=== PATIENT | female | born 1980 | race Caucasian/White ===

== ENCOUNTER 2020-05-19 17:35 | Emergency (ER) | payer OTHER ==
[2020-05-19] MEDS ORDERED: Sodium Chloride 0.9% 1000 ML 1,000 ML IV STA (17:59)
[2020-05-19 18:25] LABS: BASOPHIL % 0.3 % (0.0-0.4); Basophil (Absolute #) 0.03 (0-0.4); Eosinophil (Absolute #) 0.09 (0-0.5); Hematocrit 39.4 % (35-47); Lymphocyte (Absolute #) 2.52 (1.0-4.6); Lymphocytes % 28.3 % (24.0-44.0); Mean Cell Volume 91.8 fl (78-100); Mean Corpuscular Hemoglobin 30.3 pg (26-32); Mean Platelet Volume 9.6 fl (7.5-11.0); Monocyte (Absolute #) 0.46 (0.0-1.3); Monocytes % 5.2 % (0.0-12.0); Neutrophil % 65.2 % (36.0-66.0); Platelet Count 202 K/mm3 (150-450); Red Blood Count 4.29 M/mm3 (4.1-5.4); Red Cell Distribution Width 11.9 % (11.5-14.0); White Blood Count 8.9 K/mm3 (4.0-10.5)
[2020-05-19] MEDS ORDERED: Sodium Chloride 0.9% 1000 ML 1,000 ML ONE (18:25)
[2020-05-19 18:34] LABS: INR 1.05 (0.8-3.0); PROTIME 11.9 SECONDS (9.95-12.35)
[2020-05-19 18:36] LABS: ALBUMIN 3.9 g/dL (3.5-5.0); ALKALINE PHOSPHATASE 62 U/L (38-126); AMYLASE 86 U/L (30-110); ANION GAP 8.9 MEQ/L (5-15); BLOOD UREA NITROGEN 14 mg/dL (7-17); CHLORIDE 105 mmol/L (98-107); Carbon Dioxide 26 mmol/L (22-30); Creatinine 1 0.61 mg/dL (0.52-1.04); Glucose 98 mg/dL (74-106); LIPASE 261 U/L (23-300); MAGNESIUM 1.8 mg/dL (1.6-2.3); Potassium 3.5 mmol/L (3.5-5.1); SGOT/AST 23 U/L (14-36); SGPT/ALT 19 U/L (0-35); SODIUM 137 mmol/L (137-145); Total Protein 6.7 g/dL (6.3-8.2)
--- NOTE | 2020-05-19 19:57 | ERPHSYRPT ---
- History of Present Illness Patient Subjective Stated Complaint: "I was working outside when I twisted my ankle. I felt like I was going to pass out so my daughter helped me to the ground. I did pass out for a little bit." Triage Nursing Assessment: Pt presented alert et oriented x3 answering questions appropriately. Pt reported twisting her ankle at home prior to having a single syncopal episode. Pt denied headache, chest pain, shortness of breath at this time. Pupils 3mm reactive. Oral mucosa pink/dry. Neck supple non-tender. Symmetrical chest expansion. Lungs clear with adequate airflow. Heart tones regular/clear. Radial pulses equal/bilateral. Abdomen soft non-tender. No noted dependent edema. Pedal pulses equal bilateral. GCS - 15, NIHSS - 0, No noted focal neurological deficits. Physician History: Is a 39-year-old female who twisted her ankle had some nausea and a brief sync opal episode and was dizzy with standing afterwards. He has no history of previous syncope she has had multiple sprains and strains of the right ankle. Witnessed: by family Prior Episodes: single episode today, no prior history Timing/Duration: today Precipitating Factors: injury (Sprain right ankle) Context: standing Loss of Consciousness: brief (seconds) Charcter of event(s): felt faint Allergies/Adverse Reactions: No Known Drug Allergies Allergy (Unverified 05/19/20 17:45) Hx Tetanus, Diphtheria Vaccination/Date Given: No Hx Influenza Vaccination/Date Given: No Travel Risk - International Travel Have you traveled outside of the country in past 3 weeks: No - Coronavirus Screening Close contact with a COVID-19 positive Pt in past 14-21 Days: No - Past Medical History Pertinent Past Medical History: No - Past Surgical History Past Surgical History: No - Social History Smoking Status: Never smoker Exposure to second hand smoke: No Drug Use: none - Female History Hx Now: No - Review of Systems Constitutional: Weakness, No Fever, No Chills Eyes: No Symptoms Ears, Nose, & Throat: No Symptoms Respiratory: No Cough, No Dyspnea Cardiac: No Chest Pain, No Edema, No Syncope Abdominal/Gastrointestinal: Nausea, No Abdominal Pain, No Vomiting, No Diarrhea Genitourinary Symptoms: No Dysuria Musculoskeletal: Joint Pain, Joint Swelling (Swelling right ankle), No Back Pain, No Neck Pain Skin: No Rash Neurological: No Dizziness, No Focal Weakness, No Sensory Changes Psychological: No Symptoms Endocrine: No Symptoms All Other Systems: Reviewed and Negative Physical Exam - Nursing Vital Signs Nursing Vital Signs: Initial Vital Signs Temperature 97.9 F 05/19/20 17:35 Pulse Rate 66 05/19/20 17:35 Respiratory Rate 18 05/19/20 17:35 Blood Pressure 133/63 05/19/20 17:35 O2 Sat by Pulse Oximetry 98 05/19/20 17:35 - Cl[place]son Coma Scale Best Eye Response (Sebas): (4) open spontaneously Best Verbal Response (Cl[place]son): (5) oriented Best Motor Response (Sebas): (6) obeys commands Sebas Total: 15 - Physical Exam General Appearance: no apparent distress, alert Eye Exam: bilateral eye: PERRL, EOMI Ears, Nose, Throat Exam: normal ENT inspection, pharynx normal, moist mucous membranes Neck Exam: normal inspection Respiratory: normal breath sounds, lungs clear, No chest tenderness, No respiratory distress Cardiovascular: regular rate/rhythm, capillary refill <2 sec, No murmur, No pulse deficit Gastrointestinal: soft, No tenderness, No distention, No mass Back Exam: normal inspection, normal range of motion, No CVA tenderness, No vertebral tenderness Extremity Exam: other (Right ankle is swollen and tender over the lateral malleolus) Peripheral Pulses: carotid (R): 2+, carotid (L): 2+ Mental Status: alert, oriented x 3, cooperative strategic planning analyst Exam: normal hearing, normal speech, PERRL Coordination/Gait: normal gait, normal cerebellar function Motor/Sensory: no motor deficit, no sensory deficit Skin Exam: normal color, warm, dry, No rash SpO2 Interpretation: normal SpO2: 100 O2 Delivery: Room Air Procedures - Splinting Location of Splint: Right, Ankle Type of Splint: Air Cast Splint Applied By: ED Nurse Pre-Proc Neuro Vasc Exam: normal Post-Proc Neuro Vasc Exam: neurovascular intact, unchanged from pre-exam - Course Nursing assessment & vital signs reviewed: Yes - Radiology Exams Right Ankle X-ray Interpretation: Negative (No acute fracture) Chest X-ray Interpretation: Other (Negative for acute process) Ordered Tests: Active Orders 24 hr Category Date Time Status Accucheck STAT Care 05/19/20 17:59 Active EKG-ER Only STAT Care 05/19/20 17:59 Active Orthostatic Vital Signs STAT Care 05/19/20 18:02 Active Pulse Oximetry (ED) STAT Care 05/19/20 17:59 Active ANKLE (3 VIEWS) Stat Exams 05/19/20 19:22 Taken CHEST 1 VIEW (PORTABLE) Stat Exams 05/19/20 17:59 Taken AMYLASE Stat Lab 05/19/20 18:21 Completed CBC W DIFF Stat Lab 05/19/20 18:21 Completed CMP Stat Lab 05/19/20 18:21 Completed LIPASE Stat Lab 05/19/20 18:21 Completed Lactic Acid Stat Lab 05/19/20 18:30 Completed MAGNESIUM Stat Lab 05/19/20 18:21 Completed PROTIME WITH INR Stat Lab 05/19/20 18:21 Completed TROPONIN Q3H Lab 05/19/20 18:21 Completed TROPONIN Q3H Lab 05/19/20 21:15 Ordered TROPONIN Q3H Lab 05/20/20 00:15 Ordered TROPONIN Q3H Lab 05/20/20 03:15 Ordered TROPONIN Q3H Lab 05/20/20 06:15 Ordered UA W/RFX UR CULTURE Stat Lab 05/19/20 17:59 Uncollected Medication Summary Discontinued Medications Generic Name Dose Route Start Last Admin Trade Name Freq PRN Reason Stop Dose Admin Sodium Chloride 1,000 mls @ 999 mls/hr 05/19/20 17:59 05/19/20 18:28 Sodium Chloride 0.9% 1000 Ml IV 05/19/20 18:59 999 mls/hr .Q1H1M STA Administration Sodium Chloride Confirm 05/19/20 18:25 Sodium Chloride 0.9% 1000 Ml Administered 05/19/20 18:26 Dose 1,000 mls @ ud .ROUTE .K-MED ONE Lab/Rad Data: Laboratory Result Diagrams 05/19/20 18:21 05/19/20 18:21 Laboratory Results 05/19/20 05/19/20 05/19/20 Range/Units 18:30 18:21 18:21 WBC (4.0-10.5) K/mm3 RBC (4.1-5.4) M/mm3 Hgb (12.0-16.0) gm/dl Hct (35-47) % MCV (78-100) fl MCH (26-32) pg MCHC (32-36) g/dl RDW (11.5-14.0) % Plt Count (150-450) K/mm3 MPV (7.5-11.0) fl Gran % (36.0-66.0) % Eos # (Auto) (0-0.5) Absolute Lymphs (auto) (1.0-4.6) Absolute Monos (auto) (0.0-1.3) Lymphocytes % (24.0-44.0) % Monocytes % (0.0-12.0) % Eosinophils % (0.00-5.0) % Basophils % (0.0-0.4) % Absolute Granulocytes (1.4-6.9) Basophils # (0-0.4) PT 11.9 (9.95-12.35) SECONDS INR 1.05 (0.8-3.0) Sodium (137-145) mmol/L Potassium (3.5-5.1) mmol/L Chloride (98-107) mmol/L Carbon Dioxide (22-30) mmol/L Anion Gap (5-15) MEQ/L BUN (7-17) mg/dL Creatinine (0.52-1.04) mg/dL Estimated GFR ML/MIN Glucose (74-106) mg/dL Lactic Acid 0.7 (0.4-2.0) Calcium (8.4-10.2) mg/dL Magnesium (1.6-2.3) mg/dL Total Bilirubin (0.2-1.3) mg/dL AST (14-36) U/L ALT (0-35) U/L Alkaline Phosphatase (38-126) U/L Troponin I < 0.012 (0.000-0.034) ng/mL Serum Total Protein (6.3-8.2) g/dL Albumin (3.5-5.0) g/dL Amylase (30-110) U/L Lipase (23-300) U/L 05/19/20 05/19/20 Range/Units 18:21 18:21 WBC 8.9 (4.0-10.5) K/mm3 RBC 4.29 (4.1-5.4) M/mm3 Hgb 13.0 (12.0-16.0) gm/dl Hct 39.4 (35-47) % MCV 91.8 (78-100) fl MCH 30.3 (26-32) pg MCHC 33.0 (32-36) g/dl RDW 11.9 (11.5-14.0) % Plt Count 202 (150-450) K/mm3 MPV 9.6 (7.5-11.0) fl Gran % 65.2 (36.0-66.0) % Eos # (Auto) 0.09 (0-0.5) Absolute Lymphs (auto) 2.52 (1.0-4.6) Absolute Monos (auto) 0.46 (0.0-1.3) Lymphocytes % 28.3 (24.0-44.0) % Monocytes % 5.2 (0.0-12.0) % Eosinophils % 1.0 (0.00-5.0) % Basophils % 0.3 (0.0-0.4) % Absolute Granulocytes 5.80 (1.4-6.9) Basophils # 0.03 (0-0.4) PT (9.95-12.35) SECONDS INR (0.8-3.0) Sodium 137 (137-145) mmol/L Potassium 3.5 (3.5-5.1) mmol/L Chloride 105 (98-107) mmol/L Carbon Dioxide 26 (22-30) mmol/L Anion Gap 8.9 (5-15) MEQ/L BUN 14 (7-17) mg/dL Creatinine 0.61 (0.52-1.04) mg/dL Estimated GFR > 60.0 ML/MIN Glucose 98 (74-106) mg/dL Lactic Acid (0.4-2.0) Calcium 9.0 (8.4-10.2) mg/dL Magnesium 1.8 (1.6-2.3) mg/dL Total Bilirubin 0.70 (0.2-1.3) mg/dL AST 23 (14-36) U/L ALT 19 (0-35) U/L Alkaline Phosphatase 62 (38-126) U/L Troponin I (0.000-0.034) ng/mL Serum Total Protein 6.7 (6.3-8.2) g/dL Albumin 3.9 (3.5-5.0) g/dL Amylase 86 (30-110) U/L Lipase 261 (23-300) U/L - Progress Progress: improved - Departure Departure Disposition: Home Clinical Impression: Syncope, Ankle sprain Condition: Stable Critical Care Time: No Referrals: DOCTOR,NO FAMILY [Primary Care Provider] - Prescriptions: Hydrocodone/APAP 5-325 Tab^^^ [[place] 5-325 Tablet^^^] 1 tab PO Q6HPRN PRN #10 tablet MDD 6 PRN Reason: Pain
[2020-05-19 20:28] VITALS: BP 127/70; PULSE 72; O2SAT 99
--- NOTE | 2020-05-19 21:30 | XRAY ---
Indication: Syncope. Comparison: None Portable apical lordotic chest clear. Heart and mediastinal structures within normal limits. Bony thorax intact. Impression: Nonacute chest.
--- NOTE | 2020-05-19 21:35 | XRAY ---
Indication: Pain following twisting injury. Comparison: July 22, 2016. 3 view right ankle again demonstrates mild lateral soft tissue swelling, lateral malleolus tip heterotopic ossification, and tiny posterior talus accessory ossicle. New tiny plantar heel spur. No other bony, articular, or soft tissue abnormalities.
== END 2020-05-19 20:18 | disposition home or self-care (01) ==
LOC: ED 17:35
DX: R55 Syncope and collapse (principal); S93.401A Sprain of unspecified ligament of right ankle, initial encounter; X50.1XXA Overexertion from prolonged static or awkward postures, initial encounter; Y93.01 Activity, walking, marching and hiking; Y92.9 Unspecified place or not applicable
CPT/HCPCS: 36415; 71045; 73610; 80053; 82150; 82962; 83605; 83690; 83735; 84484; 85025; 85610; 93005; 94760; 96360; 96361; 99284

== ENCOUNTER 2022-06-18 22:15 | Emergency (ER) | payer OTHER ==
--- NOTE | 2022-06-18 23:25 | ERPHSYRPT ---
- History of Present Illness Time Seen by Provider: 06/18/22 22:40 Source: patient Exam Limitations: no limitations Patient Subjective Stated Complaint: pt states sha has had a rash on the rt side of her face since friday. today has had some itching and aching pain in rt f [place] and tonight swelling in her rt eye lid. Triage Nursing Assessment: pt alert and oriented answers questions approp. pt ambulatory with steady gait noted. respirations nonlabored. skin pink warm and dry. redness noted to rt forehead. swelling to rt eyelid. pt denies vision changes. Physician History: Patient is a 42-year-old female presents to emergency department for evaluation of possible shingles. Patient states she has had a rash on the right side of her forehead since Friday x4 days. Patient feels the rash has gotten progressively worse. Is now involving her eyelid. No change in vision. The rash does not affect her eye. Patient denies eye pain. Patient states the rash started to itch today. Patient has been scratching. No obvious superimposed infection. Patient has a history of chickenpox as a child. No history of shingles. Patient states she has been under significant financial stress over the past week. Patient symptoms are mild to moderate in intensity. No specific worsening improving factors. Patient states he is otherwise healthy. She voices no other complaints or concerns at this time. Timing/Duration: today Severity: moderate Modifying Factors: Improves With: nothing Associated Symptoms: denies symptoms Allergies/Adverse Reactions: No Known Drug Allergies Allergy (Verified 06/18/22 22:47) Hx Tetanus, Diphtheria Vaccination/Date Given: No Hx Influenza Vaccination/Date Given: No Hx Pneumococcal Vaccination/Date Given: No Immunizations Up to Date: No Travel Risk - International Travel Have you traveled outside of the country in past 3 weeks: No - Coronavirus Screening Are you exhibiting any of the following symptoms?: No Close contact with a COVID-19 positive Pt in past 14-21 Days: No - Vaccine Status Have you recieved a Covid-19 vaccination: No - Review of Systems Constitutional: No Symptoms, No Fever, No Chills Eyes: No Symptoms Ears, Nose, & Throat: No Symptoms Respiratory: No Symptoms, No Cough, No Dyspnea Cardiac: No Symptoms, No Chest Pain, No Edema, No Syncope Abdominal/Gastrointestinal: No Symptoms, No Abdominal Pain, No Nausea, No Vomiting, No Diarrhea Genitourinary Symptoms: No Symptoms, No Dysuria Musculoskeletal: No Symptoms, No Back Pain, No Neck Pain Skin: No Symptoms, No Rash Neurological: No Symptoms, No Dizziness, No Focal Weakness, No Sensory Changes Psychological: No Symptoms Endocrine: No Symptoms Hematologic/Lymphatic: No Symptoms Immunological/Allergic: No Symptoms All Other Systems: Reviewed and Negative - Past Medical History Pertinent Past Medical History: No - Past Surgical History Past Surgical History: Yes Gastrointestinal: Cholecystectomy Female Surgical History: Tubal Ligation - Social History Smoking Status: Never smoker Exposure to second hand smoke: No Drug Use: none Patient Lives Alone: No - Female History Hx Last Menstrual Period: current Hx Now: No - Nursing Vital Signs Nursing Vital Signs: Initial Vital Signs Temperature 98.8 F 06/18/22 22:30 Pulse Rate 71 06/18/22 22:30 Respiratory Rate 16 06/18/22 22:30 Blood Pressure 166/82 06/18/22 22:30 O2 Sat by Pulse Oximetry 97 06/18/22 22:30 Pain Scale Pain Intensity 4 - Physical Exam General Appearance: no apparent distress, alert Eye Exam: PERRL/EOMI, eyes nml inspection, other (Just to the right spiritism there is an area of mild erythema. The erythema does not involve the patient's right eyelid. This may be early herpes ophthalmicus. However it may not have fully declared itself.) Ears, Nose, Throat Exam: normal ENT inspection, TMs normal, pharynx normal, moist mucous membranes Neck Exam: normal inspection, non-tender, supple, full range of motion Respiratory Exam: normal breath sounds, lungs clear, airway intact, No respiratory distress Cardiovascular Exam: regular rate/rhythm, normal heart sounds, normal peripheral pulses Gastrointestinal/Abdomen Exam: soft, normal bowel sounds, No tenderness, No mass Back Exam: normal inspection, normal range of motion, No CVA tenderness, No vertebral tenderness Extremity Exam: normal inspection, normal range of motion, pelvis stable Neurologic Exam: alert, oriented x 3, cooperative, normal mood/affect, sensation nml, No motor deficits Skin Exam: normal color, warm, dry, No rash Lymphatic Exam: No adenopathy SpO2 Interpretation: normal SpO2: 98 O2 Delivery: Room Air - Course Nursing assessment & vital signs reviewed: Yes - Progress Progress: unchanged Progress Note: 42-year-old female presents to our ED with a 4-day history of a rash at her right spiritism that is now involving her right upper eyelid. There is a mild blepharitis. This may be the beginning of herpes ophthalmicus. A prescription for acyclovir was forwarded to patient's pharmacy. Patient will begin to take her acyclovir if her symptoms progress. She agrees to follow-up with her primary care doctor within 48 hours for evaluation. Patient voices no other complaints or concerns at this time. Portions of this note were created with voice recognition technology. There may be grammatical, spelling, punctuation or sound alike errors 06/18/22 23:30 Counseled pt/family regarding: diagnosis, need for follow-up - Departure Departure Disposition: Home Clinical Impression: Shingles of eyelid Condition: Stable Critical Care Time: No Referrals: DALILA ELY [Primary Care Provider] - Follow up/PCP as directed Instructions: COVID-19 ED Prescriptions: Acyclovir 800 mg [Acyclovir] 800 mg PO 5XD 7 Days #35 tablet
[2022-06-18 23:32] VITALS: BP 134/80; PULSE 70
[2022-06-18 23:33] VITALS: O2SAT 98
== END 2022-06-18 23:52 | disposition home or self-care (01) ==
LOC: ED 22:15
DX: B02.39 Other herpes zoster eye disease (principal); Z28.310 Unvaccinated for COVID-19
CPT/HCPCS: 99281